=== PATIENT | male | born 1960 | race Hispanic/Latino ===

== ENCOUNTER 2020-02-26 11:09 | Day surgery (SDC) | payer SELFPAY ==
[2020-02-26] MEDS ORDERED: ONDANSETRON 4 MG/2 ML VIAL ONE ×2 (12:16→14:09)
[2020-02-26] MEDS ORDERED: MORPHINE 4 MG/ML SYR ONE (12:16)
--- NOTE | 2020-02-26 12:30 | EDPHYS ---
Physician Documentation [facility] Name: Vito Garcia Age: 59 yrs Sex: Male : 1960 Arrival Date: 02/26/2020 Time: 11:22 Bed 20 Private MD: ED Physician Goldy Driver HPI: 02/25 12:09 This 59 yrs old Male presents to ER via Ambulatory with complaints of snw Laceration To Arm. 12:09 The patient has a laceration related to: working, glass, occurred at work, and heavy snw bleeding The injury was accidental. The laceration(s) is(are) located on the dorsal aspect of right forearm. Onset: The symptoms/episode began/occurred suddenly, just prior to arrival. Associated signs and symptoms: Pertinent positives: heavy bleeding. The patient has not experienced similar symptoms in the past. The patient has not recently seen a physician. denies medical problems of medications, tetanus up to date, last po at 0600. Historical: - Allergies: 11:35 No Known Allergies; sv - PMHx: 11:35 None; sv - PSHx: 11:35 None; sv - Immunization history:: Last tetanus immunization: < 5 years ago. - Social history:: Smoking status: . ROS: 12:06 Constitutional: Negative for fever, chills, and weight loss, Eyes: Negative for injury, snw pain, redness, and discharge, ENT: Negative for injury, pain, and discharge, Neck: Negative for injury, pain, and swelling, Cardiovascular: Negative for chest pain, palpitations, and edema, Respiratory: Negative for shortness of breath, cough, wheezing, and pleuritic chest pain, Abdomen/GI: Negative for abdominal pain, nausea, vomiting, diarrhea, and constipation, Back: Negative for injury and pain, : Negative for injury, bleeding, discharge, and swelling, MS/Extremity: Negative for injury and deformity, Neuro: Negative for headache, weakness, numbness, tingling, and seizure, Psych: Negative for depression, anxiety, suicide ideation, homicidal ideation, and hallucinations. 12:06 Skin: Positive for laceration(s), of the dorsal aspect of right forearm. Exam: 12:05 Constitutional: This is a well developed, well nourished patient who is awake, alert, snw and in no acute distress. Head/Face: Normocephalic, atraumatic. Eyes: Pupils equal round and reactive to light, extra-ocular motions intact. Lids and lashes normal. Conjunctiva and sclera are non-icteric and not injected. Cornea within normal limits. Periorbital areas with no swelling, redness, or edema. ENT: Nares patent. No nasal discharge, no septal abnormalities noted. Tympanic membranes are normal and external auditory canals are clear. Oropharynx with no redness, swelling, or masses, exudates, or evidence of obstruction, uvula midline. Mucous membranes moist. Neck: Trachea midline, no thyromegaly or masses palpated, and no cervical lymphadenopathy. Supple, full range of motion without nuchal rigidity, or vertebral point tenderness. No Meningismus. Chest/axilla: Normal chest wall appearance and motion. Nontender with no deformity. No lesions are appreciated. Cardiovascular: Regular rate and rhythm with a normal S1 and S2. No gallops, murmurs, or rubs. Normal PMI, no JVD. No pulse deficits. Respiratory: Lungs have equal breath sounds bilaterally, clear to auscultation and percussion. No rales, rhonchi or wheezes noted. No increased work of breathing, no retractions or nasal flaring. Abdomen/GI: Soft, non-tender, with normal bowel sounds. No distension or tympany. No guarding or rebound. No evidence of tenderness throughout. Back: No spinal tenderness. No costovertebral tenderness. Full range of motion. MS/ Extremity: Pulses equal, no cyanosis. Neurovascular intact. Full, normal range of motion. Neuro: Awake and alert, GCS 15, oriented to person, place, time, and situation. Cranial nerves II-XII grossly intact. Motor strength 5/5 in all extremities. Sensory grossly intact. Cerebellar exam normal. Normal gait. Psych: Awake, alert, with orientation to person, place and time. Behavior, mood, and affect are within normal limits. 12:05 Skin: Appearance: normal except for affected area, injury, laceration(s), the wound is approximately 4 cm(s), with a depth of 3 cm(s), of the dorsal aspect of right forearm, bleeding heavily, pressure bandage applied. Vital Signs: 11:35 BP 152 / 88; Pulse 70; Resp 16; Temp 98.2; Pulse Ox 100% ; Weight 77.11 kg; sv 12:48 BP 133 / 88; Pulse 68; Resp 17; Pulse Ox 100% ; Pain 2/10; ll1 MDM: 11:46 Patient medically screened. ollie 12:11 Physician consultation: Tien Drew MD was called at 12:05. snw 12:29 Data reviewed: vital signs, nurses notes. Data interpreted: Pulse oximetry: on room air snw is 100 %. Interpretation: normal. Counseling: I had a detailed discussion with the patient and/or guardian regarding: the historical points, exam findings, and any diagnostic results supporting the discharge/admit diagnosis, lab results, radiology results, the need for further work-up and treatment in the hospital. Physician consultation: Anibal Luo MD was called at 12:15, was contacted at 12:15, regarding admission, to the operating room, patient's condition, Dr. Luo kindly accepts pt to OR. 02/25 12:09 Order name: CBC with Diff; Complete Time: 12:50 sv 02/25 12:09 Order name: Basic Metabolic Panel; Complete Time: 12:47 sv 02/25 11:51 Order name: Forearm Right XRAY sv 02/25 12:09 Order name: Type And Screen sv 02/25 11:51 Order name: IV Saline Lock; Complete Time: 12:09 sv 02/25 11:51 Order name: Dressing - Wound; Complete Time: 12:59 sv 02/25 11:51 Order name: Gloves, Sterile; Complete Time: 11:51 sv 02/25 12:23 Order name: EKG; Complete Time: 12:24 snw 02/25 12:25 Order name: Chest Single View EDMS 02/25 11:51 Order name: Setup Suture Tray; Complete Time: 11:51 sv 02/25 12:23 Order name: EKG - Nurse/Tech; Complete Time: 12:35 snw Administered Medications: 12:09 Drug: morphine 4 mg {Note: lauren 0.} Route: IVP; Site: left antecubital; ll1 12:58 Follow up: Response: No adverse reaction; RASS: Alert and Calm (0) ll1 12:09 Drug: Zofran (Ondansetron) 4 mg Route: IVP; Site: left antecubital; ll1 12:58 Follow up: Response: No adverse reaction; RASS: Alert and Calm (0) ll1 12:34 Drug: Ancef 1 grams Route: IVPB; Site: left antecubital; ll1 12:48 Follow up: Response: No adverse reaction; RASS: Alert and Calm (0); IV Status: ll1 Completed infusion; IV Intake: 20ml Disposition: 15:42 Co-signature as Attending Physician, Goldy Driver MD I agree with the assessment and [facility] plan of care. Disposition: 02/26/20 12:29 Hospitalization ordered by Anibal Luo for Observation. Preliminary diagnosis is Laceration without foreign body of right forearm - through muscle belly with heavy bleeding. - Bed requested for Operating Room. - Status is Observation. ll1 - Condition is Stable. - Problem is new. - Symptoms are unchanged. Signatures: Dispatcher [employer] EDIngrid Julien, RN Goldy Wasserman MD MD cha Waters, Shelly, MS SQL DEVELOPER-C MS SQL DEVELOPER-Csnw Sravan Shetty RN RN ll1 Corrections: (The following items were deleted from the chart) 12:25 12:05 Forearm Right+RAD.RAD.BRZ ordered. EDMS EDMS 12:56 12:36 CORONAVIRUS+MR.LAB.BRZ ordered. EDMS EDMS 12:57 12:29 Hospitalization Ordered by Anibal Luo MD for Observation. Preliminary ll1 diagnosis is Laceration without foreign body of right forearm - through muscle belly with heavy bleeding. Bed requested for Operating Room. Status is Observation. Condition is Stable. Problem is new. Symptoms are unchanged. snw
--- NOTE | 2020-02-26 12:30 | ER ---
Nurse's Notes [facility] Name: Vito Garcia Age: 59 yrs Sex: Male : 1960 Arrival Date: 02/26/2020 Time: 11:22 Bed 20 Private MD: Diagnosis: Laceration without foreign body of right forearm-through muscle belly with heavy bleeding Presentation: 02/25 11:31 Risk Assessment: Do you want to hurt yourself or someone else? Patient reports no sv desire to harm self or others. 11:31 Method Of Arrival: Ambulatory sv 11:33 Chief complaint: Patient states: laceration to the right arm after a piece fell on his sv arm about 4 foot high. Coronavirus screen: Client denies travel out of the [place] in the last 14 days. At this time, the client does not indicate any symptoms associated with coronavirus-19. Ebola Screen: No symptoms or risks identified at this time. Onset of symptoms was February 26, 2020. 11:33 Acuity: YOHAN 2 sv 11:35 Complicating Factors: Glass or an other foreign body is present in the wound. Initial sv Sepsis Screen: Does the patient meet any 2 criteria? No. Patient's initial sepsis screen is negative. Does the patient have a suspected source of infection? No. Patient's initial sepsis screen is negative. Triage Assessment: 11:32 General: Appears in no apparent distress. comfortable, Behavior is calm, cooperative, sv appropriate for age. Neuro: Level of Consciousness is awake, alert, obeys commands, Gait is steady. Respiratory: Respiratory effort is even, unlabored. 11:32 Injury Description: Laceration sustained to dorsal aspect of right forearm is sv contaminated, 7.6 to 20 cm long, bleeding moderately, was sustained 30-60 minutes ago. is bleeding moderately. Historical: - Allergies: 11:35 No Known Allergies; sv - PMHx: 11:35 None; sv - PSHx: 11:35 None; sv - Immunization history:: Last tetanus immunization: < 5 years ago. - Social history:: Smoking status: . Screenin:11 Abuse screen: Denies threats or abuse. Nutritional screening: No deficits noted. ll1 Tuberculosis screening: No symptoms or risk factors identified. Fall Risk IV access (20 points). Total Vaughn Fall Scale indicates No Risk (0-24 pts). Assessment: 12:09 General: Appears uncomfortable, Behavior is calm, cooperative, appropriate for age. ll1 Pain: Complains of pain in right arm Pain currently is 3 out of 10 on a pain scale. Quality of pain is described as aching. Derm: Skin is pink, warm \T\ dry. normal, Reports laceration R FA. Musculoskeletal: Circulation, motion, and sensation intact. Capillary refill < 3 seconds, Reports laceration right FA. Injury Description: Laceration sustained to right arm is bleeding moderately. 12:57 Reassessment: Patient and/or family updated on plan of care and expected duration. Pain ll1 level reassessed. Vital Signs: 11:35 BP 152 / 88; Pulse 70; Resp 16; Temp 98.2; Pulse Ox 100% ; Weight 77.11 kg; sv 12:48 BP 133 / 88; Pulse 68; Resp 17; Pulse Ox 100% ; Pain 2/10; ll1 ED Course: 11:22 Patient arrived in ED. mr 11:31 Arm band placed on. sv 11:34 Triage completed. sv 11:41 Soledad Crespo FNP-C is [facility]. snw 11:42 Goldy Driver MD is Attending Physician. snw 11:55 Inserted saline lock: 20 gauge in left antecubital area, using aseptic technique. Blood vg1 collected. 11:55 Initial lab(s) drawn, by ct, sent to lab. vg1 12:08 Sravan Shetty, RN is Primary Nurse. ll1 12:11 Patient has correct armband on for positive identification. Bed in low position. Call ll1 light in reach. Side rails up X 1. Pulse ox on. NIBP on. 12:25 Forearm Right XRAY In Process Unspecified. EDMS 12:25 Chest Single View In Process Unspecified. EDMS 12:28 Anibal Luo MD is Hospitalizing Provider. snw 12:56 No provider procedures requiring assistance completed. Patient admitted, IV remains in ll1 place. Administered Medications: 12:09 Drug: morphine 4 mg {Note: lauren 0.} Route: IVP; Site: left antecubital; ll1 12:58 Follow up: Response: No adverse reaction; RASS: Alert and Calm (0) ll1 12:09 Drug: Zofran (Ondansetron) 4 mg Route: IVP; Site: left antecubital; 1 12:58 Follow up: Response: No adverse reaction; RASS: Alert and Calm (0) ll1 12:34 Drug: Ancef 1 grams Route: IVPB; Site: left antecubital; ll1 12:48 Follow up: Response: No adverse reaction; RASS: Alert and Calm (0); IV Status: ll1 Completed infusion; IV Intake: 20ml Intake: 12:48 IV: 20ml; Total: 20ml. [facility] Outcome: 12:29 Decision to Hospitalize by Provider. snw 12:56 Admitted to OR accompanied by tech, via wheelchair, with chart, Report called to OR [facility] tech 12:56 Condition: stable 12:56 Instructed on the need for admit. 12:57 Patient left the ED. 1 Signatures: Dispatcher [employer] Ingrid Tran RN RN sv Soledad Crespo, SPORTS MEDICINE TRAINER-C SPORTS MEDICINE TRAINER-Csnw JhaveriFrieda Victoria RN RN 1 Sravan Shetty RN RN 1 Corrections: (The following items were deleted from the chart) 12:10 11:33 Acuity: YOHAN 3 sv sv
[2020-02-26 12:40] LABS: Absolute Lymphocytes (CBC) 1.9 K/uL (0.7-4.9); Basophils % 1.2 % (0-1.3); Hematocrit 37.4 % (39.6-49.0); MPV 7.6 fL (7.6-11.3); RBC Red Blood Cell Count 4.01 M/uL (4.33-5.43)
[2020-02-26] MEDS ORDERED: CEFAZOLIN/SWI 1gm 1 GM/10 ML SYR ONE (12:42)
[2020-02-26 12:46] LABS: Potassium 3.8 mmol/L (3.5-5.1)
--- NOTE | 2020-02-26 13:07 | RAD REPORT ---
EXAM DESCRIPTION: RAD - Forearm Right - 02/26/2020 12:25 pm CLINICAL HISTORY: Right arm pain status post fall FINDINGS: No fracture is seen. Soft tissue laceration present
--- NOTE | 2020-02-26 13:07 | RAD REPORT ---
EXAM DESCRIPTION: Monty Single View02/26/2020 12:26 pm CLINICAL HISTORY: Preop for arm surgery COMPARISON: none FINDINGS: The lungs appear clear of acute infiltrate. The heart is normal size IMPRESSION: No acute abnormalities displayed
[2020-02-26] MEDS ORDERED: Ringers Lactate 1,000 ML IV ONE (13:24)
[2020-02-26] MEDS ORDERED: KETOROLAC 30 MG/ML INJ ONE (14:09)
[2020-02-26] MEDS ORDERED: dexAMETHasone 10 MG/ML VIAL ONE (14:09)
[2020-02-26] MEDS ORDERED: MIDAZOLAM HCL 2 MG/2 ML INJ ONE (14:09)
[2020-02-26] MEDS ORDERED: propofoL 200 MG/20 ML VIAL IV ONE (14:09)
[2020-02-26] MEDS ORDERED: FENTANYL CITR 100 MCG/2 ML ONE (14:09)
[2020-02-26] MEDS ORDERED: LIDOCAINE 2% MPF 5 ML VIAL ONE (14:09)
[2020-02-26] MEDS ORDERED: Mastisol Adhesive Liq ONE (14:49)
--- NOTE | 2020-02-26 16:20 | OP ---
Surgeon: Anibal Luo MD Preoperative Diagnosis: Open wound of the right forearm. Postoperative Diagnosis: Open wound of the right forearm. Procedure Performed: Debridement of skin and subcutaneous tissue, layer closure 10 cm. Anesthesia: General. Description Of Procedure: After satisfactory induction of general anesthesia, right arm was prepped with Betadine scrub, Betadine paint, dry sterile drapes applied in the usual manner. The arm was elevated, exsanguinated with an Esmarch, tourniquet inflated to 250 mmHg. Hand was placed on the OR table. The laceration was over the ulnar aspect of the right dorsal forearm and distal third to middle third. The incision edges were debrided because of beveling. The wound was inspected and there was no foreign body. The laceration was down to fascia, but not through it. All the tendons were intact. The wound was irrigated with 3 L of dilute Betadine solution. Tourniquet was released. Electrocautery was used for hemostasis. Wound was closed with 3-0 Vicryl subcutaneous, 4-0 PDS running subcuticular followed by tincture of benzoin, Steri-Strips, Kerlix. The patient tolerated procedure well and returned to Recovery. EDITH/ADEEL Voice ID: [id number] Report ID: [id number] [place]
[2020-02-26 16:56] VITALS: BP 159/84; TEMP 97.9; O2SAT 99
--- NOTE | 2020-02-28 06:10 | EKG ---
Test Date: 2020-02-26 Test Time: 12:20:19 Paving And Surfacing Labourer: NOMR MEASUREMENT RESULTS: Intervals: Rate: 69 MT: 178 QRSD: 86 QT: 388 QTc: 415 [place]: P: 48 MT: 178 QRS: 67 T: 54 INTERPRETIVE STATEMENTS: Normal sinus rhythm Normal ECG No previous ECG available for comparison Electronically Signed On 02-28-20 06:07:33 COPY OPERATOR by Augie Henao
== END 2020-02-26 15:49 | disposition home or self-care (01) ==
LOC: DS 11:09 → ER 11:09 → ERHOLD 13:01 → UNDOADMOB 13:01 → DS 15:49
PROVIDERS: ATTEND Specialist
PROC: 0JQG0ZZ Repair Right Lower Arm Subcutaneous Tissue and Fascia, Open Approach (ICD-10-PCS; principal; 2020-02-26 14:30)
DX: S51.811A Laceration without foreign body of right forearm, initial encounter (principal); W25.XXXA Contact with sharp glass, initial encounter; Y99.0 Civilian activity done for income or pay; E78.00 Pure hypercholesterolemia, unspecified
CPT/HCPCS: 36415; 71045; 80048; 85025; 86850; 86900; 86901; 93005; 96374; 96375; 99285; J0690; J1100; J2250; J2405; J2704; J3010; J7120; U0003